=== PATIENT | female | born 1995 | race African-American/Black ===

== ENCOUNTER 2016-05-30 10:06 | Inpatient (IN) | payer MEDICAID ==
[2016-05-30] VITALS (8 sets, daily range): BP systolic 106–145; RESP 18–20; TEMP 98.2; Ht 172.7 cm; Wt 109.3 kg
[~2016-05-30] VITALS: Ht 172.7 cm; Wt 109.3 kg
[~2016-05-30 10:06] MED LIST: LIDOCAINE 2% MPF 10 ML EPIDURAL ONE
[2016-05-30] MEDS ORDERED: FAMOTIDINE 20 MG INJ IV PRN (10:55)
[2016-05-30] MEDS ORDERED: PENICILLIN G 5 MU in SODIUM CHLORIDE 0.9% 250 ML IV ONE (10:55)
[2016-05-30] MEDS ORDERED: FAMOTIDINE 20 MG TAB PO PRN (10:55)
[2016-05-30] MEDS ORDERED: OXYTOCIN 15 UNITS/250 ML NS 250 ML IV SCH (10:55)
[2016-05-30] MEDS ORDERED: OXYTOCIN 15 UNITS/250 ML NS 15 UNITS in PART FILL PIGGYBACK 1 EA IV SCH ×2 (10:55→18:35)
[2016-05-30] MEDS ORDERED: TERBUTALINE 1 MG/ML VIAL SUBQ PRN (10:55)
[2016-05-30] MEDS ORDERED: METOCLOPRAMIDE 10 MG/2 ML VIAL IV PUSH PRN (10:55)
[2016-05-30] MEDS ORDERED: CEFAZOLIN (LD/OB) 100 ML IV PRN (10:55)
[2016-05-30] MEDS ORDERED: MORPHINE 5 MG/1 ML VIAL IV PRN (10:55)
[2016-05-30] MEDS ORDERED: LIDOCAINE 1% 30 ML PF INFILTRATE ONE (10:55)
[2016-05-30] MEDS ORDERED: ONDANSETRON 4 MG VIAL IV PRN (10:55)
[2016-05-30] MEDS ORDERED: ALU/MAG/SIM 30 ML UDC PO PRN (10:55)
[2016-05-30] MEDS ORDERED: LIDOCAINE 1% BUFFERED 1 ML SYR INTRADERM PRN (10:55)
[2016-05-30] MEDS ORDERED: PROMETHAZINE 25 MG/ML VIAL IV PRN (10:55)
[2016-05-30] MEDS: LACT RINGERS 1,000 ML IV SCH ×2 (11:30→16:03)
[2016-05-30] MEDS ORDERED: ROPIV/FENT 0.2%-2MCG/ML 100 ML EPIDURAL ONE (15:40)
[2016-05-30] MEDS ORDERED: FENTANYL 100 MCG/2 ML AMP ONE (15:41)
[2016-05-30] MEDS: PENICILLIN G 2.5 MU in SODIUM CHLORIDE 0.9% 100 ML IV SCH ×2 (16:03→19:58)
[2016-05-30] MEDS ORDERED: FENTANYL 100 MCG/2 ML AMP EPIDURAL ONE (16:30)
[2016-05-30] MEDS ORDERED: LACT RINGERS 500 ML IV PRN (16:30)
[2016-05-30] MEDS ORDERED: SODIUM CHLORIDE 0.9% 500 ML IV PRN (16:30)
[2016-05-30] MEDS ORDERED: LACT RINGERS 500 ML IV ONE (16:30)
[2016-05-30] MEDS ORDERED: ROPIV/FENT 0.2%-2MCG/ML 100 ML EPIDURAL SCH (16:30)
[2016-05-30] MEDS ORDERED: **ONLY ANESTEHSIA MAY ORDER OPIATES WHILE ON EPIDURAL XX SCH (20:00)
[2016-05-30] MEDS: MISOPROSTOL 200 MCG TAB PO SCH (21:45)
[2016-05-30] MEDS ORDERED: MAG HYDROX 30 ML UDC PO PRN (22:30)
[2016-05-30] MEDS ORDERED: MEASLES,MUMPS,RUBELLA VAC SUBQ.VACC ONE (22:30)
[2016-05-30] MEDS ORDERED: TDaP 0.5 ML VIAL IM.VACC ONE (22:30)
[2016-05-30] MEDS ORDERED: ASTRINGENT MED PADS 40'S TOPICAL PRN (22:30)
[2016-05-30] MEDS ORDERED: OXYTOCIN 15 UNITS/250 ML NS 250 ML IV ONE (22:30)
[2016-05-30] MEDS ORDERED: ZOLPIDEM 5 MG TAB PO PRN (22:30)
[2016-05-30] MEDS ORDERED: DERMOPLAST SPRAY TOPICAL PRN (22:30)
[2016-05-30] MEDS: Ibuprofen 600 MG TAB PO SCH (23:18)
[2016-05-30] MEDS ORDERED: MISOPROSTOL 100 MCG TAB ONE (23:23)
[2016-05-31] VITALS (8 sets, daily range): BP systolic 99–130; RESP 16–20; TEMP 97.2–98.5
[2016-05-31] MEDS: MISOPROSTOL 200 MCG TAB PO SCH (00:49)
[2016-05-31] MEDS: Ibuprofen 600 MG TAB PO SCH ×3 (06:01→18:10)
[2016-05-31] MEDS ORDERED: TDaP 0.5 ML VIAL IM.VACC ONE (07:47)
[2016-05-31] MEDS: DOCUSATE SOD 100 MG CAP PO SCH (08:51)
[2016-06-01] MEDS: Ibuprofen 600 MG TAB PO SCH ×3 (00:43→12:35)
[2016-06-01 05:40] VITALS: BP_SYST 129; RESP 20; TEMP 97.6
[2016-06-01] MEDS: DOCUSATE SOD 100 MG CAP PO SCH (08:26)
[2016-06-01 10:52] VITALS: BP_SYST 129; RESP 20; TEMP 97.6
== END 2016-06-01 15:03 | disposition home or self-care (01) | DRG 775 ==
LOC: LDOP 10:06 → LD 10:31 → OB 05-31 16:53
PROVIDERS: ADMIT Obstetrics & Gynecology Reproductive Endocrinology; ATTEND Obstetrics & Gynecology Reproductive Endocrinology
PROC: 10E0XZZ Delivery of Products of Conception, External Approach (ICD-10-PCS; principal; 2016-05-30)
PROC: 0HQ9XZZ Repair Perineum Skin, External Approach (ICD-10-PCS; 2016-05-30)
PROC: 10907ZC Drainage of Amniotic Fluid, Therapeutic from Products of Conception, Via Natural or Artificial Opening (ICD-10-PCS; 2016-05-30)
DX: O99.824 Streptococcus B carrier state complicating childbirth (principal); O24.429 Gestational diabetes mellitus in childbirth, unspecified control; O70.0 First degree perineal laceration during delivery; Z3A.40 40 weeks gestation of pregnancy; Z37.0 Single live birth
CPT/HCPCS: 82947; 85025